=== PATIENT | male | born 1985 | race Caucasian/White ===

== ENCOUNTER 2017-04-05 14:42 | Emergency (ER) | payer SELFPAY ==
[~2017-04-05] VITALS: Ht 160 cm; Wt 67.3 kg
[2017-04-05 14:45] VITALS: BP 128/66; TEMP 99
[2017-04-05] MEDS ORDERED: NORCO 325 MG-51 TAB PO (16:29)
[2017-04-05 16:43] VITALS: PULSE 78
== END 2017-04-05 16:44 | disposition home or self-care (01) ==
LOC: COL.ER 14:42
DX: S62.615A Displaced fracture of proximal phalanx of left ring finger, initial encounter for closed fracture (principal); W20.8XXA Other cause of strike by thrown, projected or falling object, initial encounter; Y92.009 Unspecified place in unspecified non-institutional (private) residence as the place of occurrence of the external cause

== ENCOUNTER 2021-04-15 16:45 | Inpatient (IN) | payer SELFPAY ==
[~2021-04-15] VITALS: Ht 170.2 cm; Wt 64.9 kg
[~2021-04-15 16:45] MED LIST: NORCO 325 MG-51 TAB PO
[2021-04-15 19:16] LABS: HEMATOCRIT 43.3 % (42.0-52.0); HEMOGLOBIN 15.3 g/dl (13.5-18.0); MEAN CELL VOLUME 89 fl (80.0-100.0); MEAN CORPUSCULAR HEMOGLOBIN 32 pg (27.0-31.0); MEAN CORPUSCULAR HGB CONC 35 g/dl (33.0-37.0); MEAN PLATELET VOLUME 10.5 fl (7.4-10.4); PLATELET COUNT 150 K/mm3 (130-400); RED BLOOD COUNT 4.86 M/mm3 (4.20-5.60); REDCELL DISTRIBUTION WIDTH-CV 11.4 % (11.5-14.5)
[2021-04-15 19:28] LABS: ALBUMIN 3.8 gm/dL (3.5-5.0); BILIRUBIN,TOTAL 0.2 mg/dL (0.0-1.0); CALCIUM 8.3 mg/dL (8.4-10.2); CREATININE, serum 0.96 (0.66-1.25); POTASSIUM 3.3 mmol/L (3.4-5.0)
[2021-04-15 19:42] LABS: C-REACTIVE PROTEIN 15.2 mg/dL (0.0-0.9)
[2021-04-15 19:58] LABS: BAND 8 % (0-10); LYMPHOCYTE 18 % (20.0-51.0); NEUTROPHILS 68 % (42.0-75.2); PLATELET ESTIMATE NORMAL (NORMAL)
[2021-04-15 21:47] LABS: INR 1.2 (0.8-3.0); PROTHROMBIN TIME 13.3 SECONDS (9.7-12.8)
[2021-04-15 21:49] LABS: PARTIAL THROMBOPLASTIN TIME 31.8 SECONDS (26.0-37.0)
[2021-04-16 00:37] LABS: ARTERIAL BLD GAS O2 SATURATION 92.9 % (92-100); ARTERIAL BLD GAS TCO2 CT 21.1; ARTERIAL BLOOD GAS BASE EXCESS -3.8 (-2-2); ARTERIAL BLOOD GAS HCO3 20.1 meq/L (22-26); ARTERIAL BLOOD GAS PCO2 33.2 mmHg (35-45); ARTERIAL BLOOD GAS PO2 66.2 mmHg (80-100)
[2021-04-16 02:45] VITALS: BP 90/56; PULSE 69; TEMP 98.6
--- NOTE | 2021-04-16 03:16 | NUR ---
PT ADMISSION COMPLETED. PT DENIES PAIN AT THIS TIME. PT ORIENTED TO ROOM, CALL LIGHT. PT BELONGINGS IN ROOM. NO OTHER NEEDS EXPRESSED.
[2021-04-16 05:05] VITALS: BP 96/60; PULSE 66; TEMP 98.3
--- NOTE | 2021-04-16 05:13 | NUR ---
PT TACHYPNIC DURING 0400 VS. PT SLEEPING, NOT COMPLAINING OF SOA. SPO2 97%. PT NOT HAVING PAIN AT THIS TIME.
--- NOTE | 2021-04-16 05:39 | NUR ---
PT CURRENTLY SLEEPING. UOP 700ML. IV CONTINUING. NO FURTHER NEEDS AT THIS TIME.
[2021-04-16 07:18] LABS: ARTERIAL BLD GAS O2 SATURATION 93.6 % (92-100); ARTERIAL BLOOD GAS BASE EXCESS -3.2 (-2-2); ARTERIAL BLOOD GAS HCO3 20.1 meq/L (22-26); ARTERIAL BLOOD GAS PCO2 31.5 mmHg (35-45); ARTERIAL BLOOD GAS pH 7.42 (7.35-7.45)
[2021-04-16 09:00] VITALS: BP 115/60; PULSE 77; TEMP 100.8
--- NOTE | 2021-04-16 10:20 | NUR ---
The patient is COVID positive. ENRIQUE contacted the patient's room phone to discuss discharge plan. The patient lives in [place] with a friend. He states that his , Estrellita, and four children live in [place]. He reports that they will be coming up to [place] next month. He reports independence with ADLs and does not have any DME. The patient does not have a PCP and has not been utilizing any pharmacy. He is listed as self pay. SW consulted financial counselor, Maria. ENRIQUE discussed the [facility] and [facility] in [place] for primary care. The patient was open to getting set up at the [facility] for follow up care. The patient does not have a DPOA-HC. He plans on returning back to his home in [place] upon discharge. ENRIQUE contacted the number on file for Estrellita. It was the wrong number. ENRIQUE notified the patient. The patient gave SW his niece's, Abi's, phone number [phone]). The patient states that Abi is staying with Estrellita right now. ENRIQUE contacted Raymundogillian and provided her with an update. Abi provided SW with Estrellita's phone number: [phone]. The patient is currently requiring 50 liters of oxygen. SW to continue to follow. *Discharge plan: home*
--- NOTE | 2021-04-16 11:01 | NUR ---
Pt awake upon entry, no C/O pain at this time. Shift assessment complete, left Pt call light in reach, bed in lowest position.
[2021-04-16 12:29] VITALS: BP 118/57; PULSE 85; TEMP 99
[2021-04-16 17:03] VITALS: BP 112/58; PULSE 69; TEMP 99.4
[2021-04-16 19:03] LABS: HEMATOCRIT 42.9 % (42.0-52.0); HEMOGLOBIN 15.5 g/dl (13.5-18.0); MEAN CELL VOLUME 87 fl (80.0-100.0); MEAN CORPUSCULAR HEMOGLOBIN 31 pg (27.0-31.0); MEAN CORPUSCULAR HGB CONC 36 g/dl (33.0-37.0); MEAN PLATELET VOLUME 10.2 fl (7.4-10.4); PLATELET COUNT 194 K/mm3 (130-400); RED BLOOD COUNT 4.94 M/mm3 (4.20-5.60); REDCELL DISTRIBUTION WIDTH-CV 11.6 % (11.5-14.5)
[2021-04-16 19:14] LABS: CREATININE, serum 0.61 (0.66-1.25)
[2021-04-16 19:58] LABS: BAND 5 % (0-10); LYMPHOCYTE 6 % (20.0-51.0); NEUTROPHILS 87 % (42.0-75.2); PLATELET ESTIMATE NORMAL (NORMAL)
--- NOTE | 2021-04-16 20:53 | NUR ---
Patient is lying in bed, alert and oriented x 4, VSS, no nausea or vomiting. Reports he feels better oxygenated. Airvo in place 50L per min 56% 0xygen. Continue monitoring.
--- NOTE | 2021-04-16 22:02 | NUR ---
Tylenol provided PRN. Patient complains of pain in the neck.
--- NOTE | 2021-04-17 00:03 | NUR ---
Patient complains about pain in the left lower side of his neck. There is some mild inflamation. Patient did not required pain meds.
[2021-04-17 01:20] VITALS: BP 104/59; PULSE 63; TEMP 98.1
[2021-04-17 04:10] VITALS: BP 103/54; PULSE 58; TEMP 98.5
--- NOTE | 2021-04-17 05:39 | NUR ---
Patient has been stable at night. Some complains about pain in his neck. Levels fo oxygen over 93% with airvo at 50L. Continue monitoring and give report to day shift nurse.
[2021-04-17 07:02] LABS: HEMATOCRIT 41.4 % (42.0-52.0); HEMOGLOBIN 14.6 g/dl (13.5-18.0); MEAN CELL VOLUME 89 fl (80.0-100.0); MEAN CORPUSCULAR HEMOGLOBIN 31 pg (27.0-31.0); MEAN CORPUSCULAR HGB CONC 35 g/dl (33.0-37.0); MEAN PLATELET VOLUME 10.3 fl (7.4-10.4); PLATELET COUNT 222 K/mm3 (130-400); RED BLOOD COUNT 4.66 M/mm3 (4.20-5.60); REDCELL DISTRIBUTION WIDTH-CV 11.7 % (11.5-14.5)
[2021-04-17 07:14] LABS: CALCIUM 8.3 mg/dL (8.4-10.2); CREATININE, serum 0.67 (0.66-1.25)
[2021-04-17 08:14] VITALS: BP 108/69; BP 108/692; PULSE 62; TEMP 98.7
[2021-04-17 08:39] LABS: BAND 11 % (0-10); LYMPHOCYTE 7 % (20.0-51.0); NEUTROPHILS 77 % (42.0-75.2)
[2021-04-17 08:40] LABS: PLATELET ESTIMATE NORMAL (NORMAL)
--- NOTE | 2021-04-17 09:57 | NUR ---
Pt awake upon entry, Sitting up in bed eating breakfast. No C/O pain at this time. Shift assessments complete, Left Pt call light in reach, bed in lowest position.
[2021-04-17 12:40] VITALS: BP 109/61; PULSE 61; TEMP 98.3
[2021-04-17 17:36] VITALS: BP 106/61; PULSE 75; TEMP 99.2
[2021-04-17 21:06] VITALS: BP 106/58; PULSE 60; TEMP 98.5
[2021-04-18 01:00] VITALS: BP 106/57; PULSE 56; TEMP 98.1
[2021-04-18 04:26] VITALS: BP 102/58; PULSE 54; TEMP 98.5
--- NOTE | 2021-04-18 06:39 | NUR ---
Patient has been stable, no needs to increase levels of O2. Still he feels SOB with exertion. Shift report will be given.
[2021-04-18 07:35] LABS: HEMATOCRIT 44.6 % (42.0-52.0); HEMOGLOBIN 15.8 g/dl (13.5-18.0); MEAN CELL VOLUME 88 fl (80.0-100.0); MEAN CORPUSCULAR HEMOGLOBIN 31 pg (27.0-31.0); MEAN CORPUSCULAR HGB CONC 35 g/dl (33.0-37.0); MEAN PLATELET VOLUME 10.4 fl (7.4-10.4); PLATELET COUNT 278 K/mm3 (130-400); RED BLOOD COUNT 5.08 M/mm3 (4.20-5.60); REDCELL DISTRIBUTION WIDTH-CV 11.6 % (11.5-14.5)
[2021-04-18 07:48] LABS: ALBUMIN 3.4 gm/dL (3.5-5.0); BILIRUBIN,TOTAL 0.4 mg/dL (0.0-1.0); C-REACTIVE PROTEIN 4.2 mg/dL (0.0-0.9); CALCIUM 8.4 mg/dL (8.4-10.2); CREATININE, serum 0.68 (0.66-1.25); POTASSIUM 3.7 mmol/L (3.4-5.0); TOTAL PROTEIN 6.3 gm/dL (6.4-8.2)
[2021-04-18 08:20] LABS: BAND 10 % (0-10); LYMPHOCYTE 10 % (20.0-51.0); NEUTROPHILS 78 % (42.0-75.2); PLATELET ESTIMATE NORMAL (NORMAL)
[2021-04-18 09:33] VITALS: BP 108/58; PULSE 61; TEMP 97.4
--- NOTE | 2021-04-18 10:24 | NUR ---
Pt awake upon entry. Has C/O pain on left breast area. Shift assessment complete, left Pt call light in reach, Bed in lowest position.
[2021-04-18 13:22] VITALS: BP 124/87; PULSE 68; TEMP 98.3
[2021-04-18 16:43] VITALS: BP 126/70; PULSE 57; TEMP 98
[2021-04-18 20:00] VITALS: BP 115/68; PULSE 52; TEMP 98.5
--- NOTE | 2021-04-18 21:30 | NUR ---
Patient is lying in bed watching televition. He is a little more positive since his O2 in airvo was reduced to 45L from 50. He states he still feel afraid of walking to the restroom because of the lack of O2. VSS. Assessment completed. Meds provided. No further needs at this time[facility]
[2021-04-19 00:11] VITALS: BP 113/61; PULSE 56; TEMP 98.8
[2021-04-19 04:13] VITALS: BP 120/65; PULSE 51; TEMP 98.8
--- NOTE | 2021-04-19 06:17 | NUR ---
Patient has had a calm night. He is at 40 L Airvo. No further needs at this time.
[2021-04-19 08:09] LABS: HEMATOCRIT 44.8 % (42.0-52.0); MEAN CELL VOLUME 88 fl (80.0-100.0); MEAN CORPUSCULAR HEMOGLOBIN 31 pg (27.0-31.0); MEAN CORPUSCULAR HGB CONC 36 g/dl (33.0-37.0); MEAN PLATELET VOLUME 10.3 fl (7.4-10.4); PLATELET COUNT 228 K/mm3 (130-400); RED BLOOD COUNT 5.09 M/mm3 (4.20-5.60); REDCELL DISTRIBUTION WIDTH-CV 11.6 % (11.5-14.5)
[2021-04-19 08:15] VITALS: BP 107/61; PULSE 70; TEMP 97.8
--- NOTE | 2021-04-19 09:50 | NUR ---
Pt awake in bed upon entry, no C/O pain at this time. Shift assessment complete, left Pt call light in reach, bed in lowest position.
[2021-04-19 10:42] LABS: CALCIUM 8.6 mg/dL (8.4-10.2); CREATININE, serum 0.72 (0.66-1.25); POTASSIUM 3.7 mmol/L (3.4-5.0)
[2021-04-19 11:03] LABS: BAND 4 % (0-10); LYMPHOCYTE 16 % (20.0-51.0); NEUTROPHILS 73 % (42.0-75.2); PLATELET ESTIMATE NORMAL (NORMAL)
[2021-04-19 12:55] VITALS: BP 118/73; PULSE 52; TEMP 97.9
[2021-04-19 15:56] VITALS: BP 114/72; PULSE 61; TEMP 985.2
[2021-04-19 20:35] VITALS: BP 112/71; PULSE 52; TEMP 98.1
--- NOTE | 2021-04-19 21:30 | NUR ---
Patient is resting in bed watching TV. Alert and oriented x 4, VSS, Tele in place, he is at 50 L 02 AIRVO. Reports feeling the same, no worst not better. Denies nausea, vomiting or pain. Continues with sporadic not productive cough. Meds provided, assessment completed. No further needs at this time. Call light within reach.
[2021-04-20] VITALS (8 sets, daily range): BP systolic 107–127; BP diastolic 55–80; PULSE 51–75; TEMP 97.8–98.8
--- NOTE | 2021-04-20 05:46 | NUR ---
Patient complains of pain in his anus. He states that has hemorrhoids.
--- NOTE | 2021-04-20 06:14 | NUR ---
Patient has been with 50 L AIRVO. No changes. He has some episodes of cough that make him try to vomit. Cough medication provided. It was reported the pain r/t hemorrhoids to the PA. Waiting for med order. No further needs at this time. Shift report will be given.
[2021-04-20 06:41] LABS: HEMATOCRIT 45.4 % (42.0-52.0); HEMOGLOBIN 15.8 g/dl (13.5-18.0); MEAN CELL VOLUME 91 fl (80.0-100.0); MEAN CORPUSCULAR HEMOGLOBIN 32 pg (27.0-31.0); MEAN CORPUSCULAR HGB CONC 35 g/dl (33.0-37.0); MEAN PLATELET VOLUME 9.8 fl (7.4-10.4); PLATELET COUNT 196 K/mm3 (130-400); RED BLOOD COUNT 5.01 M/mm3 (4.20-5.60); REDCELL DISTRIBUTION WIDTH-CV 11.7 % (11.5-14.5)
[2021-04-20 06:52] LABS: CALCIUM 8.5 mg/dL (8.4-10.2); CREATININE, serum 0.75 (0.66-1.25); POTASSIUM 3.7 mmol/L (3.4-5.0)
[2021-04-20 09:08] LABS: BAND 5 % (0-10); EOSINOPHIL 1 % (0-4); LYMPHOCYTE 12 % (20.0-51.0); METAMYELOCYTE 1 % (0-0); NEUTROPHILS 75 % (42.0-75.2); PLATELET ESTIMATE NORMAL (NORMAL)
--- NOTE | 2021-04-20 09:55 | NUR ---
Pt awake in bed upon entry, no C/O pain at this time. Shift assessment complete, left Pt call light in reach, bed in lowest position.
[2021-04-21 07:51] VITALS: BP 109/57; PULSE 66; TEMP 97.9
--- NOTE | 2021-04-21 08:00 | NUR ---
Assessment complete. Pt resting in bed, A&O x 4. Pt reports hemorroid pain 4 out of 10, denies further c/o. O2 provided via Airvo at 50L/min and 50%. When asked how pt is feeling, he replies "essie." Physical assessment otherwise unremarkable. No further needs reported. Call light in reach.
[2021-04-21 08:06] LABS: HEMOGLOBIN 16.6 g/dl (13.5-18.0); MEAN CELL VOLUME 87 fl (80.0-100.0); MEAN CORPUSCULAR HEMOGLOBIN 31 pg (27.0-31.0); MEAN CORPUSCULAR HGB CONC 36 g/dl (33.0-37.0); PLATELET COUNT 229 K/mm3 (130-400); RED BLOOD COUNT 5.29 M/mm3 (4.20-5.60); REDCELL DISTRIBUTION WIDTH-CV 11.7 % (11.5-14.5)
[2021-04-21 08:14] LABS: ALBUMIN 3.3 gm/dL (3.5-5.0); BILIRUBIN,TOTAL 0.5 mg/dL (0.0-1.0); C-REACTIVE PROTEIN 1.1 mg/dL (0.0-0.9); CALCIUM 8.7 mg/dL (8.4-10.2); CREATININE, serum 0.73 (0.66-1.25); POTASSIUM 4.2 mmol/L (3.4-5.0); TOTAL PROTEIN 6.3 gm/dL (6.4-8.2)
[2021-04-21 09:04] LABS: BAND 3 % (0-10); BASOPHIL 1 % (0-2); EOSINOPHIL 3 % (0-4); LYMPHOCYTE 11 % (20.0-51.0); METAMYELOCYTE 1 % (0-0); NEUTROPHILS 77 % (42.0-75.2)
[2021-04-21 09:05] LABS: PLATELET ESTIMATE NORMAL (NORMAL)
[2021-04-21 11:38] VITALS: BP 104/63; PULSE 61; TEMP 97.9
[2021-04-21 16:02] VITALS: BP 107/64; PULSE 71; TEMP 98.4
--- NOTE | 2021-04-21 17:00 | NUR ---
Pt has Preparation H at bedside for application, but does not feel it is relieving pain yet. Sched medications administered as well. Pt reports feeling good besides the hemorrhoid pain. No further needs reported. Call light in reach.
--- NOTE | 2021-04-21 18:48 | NUR ---
Report with JOSE Jimenez.
[2021-04-21 20:27] VITALS: BP 102/57; PULSE 62; TEMP 98.4
[2021-04-22 00:46] VITALS: BP 94/74; PULSE 74; TEMP 98.4
[2021-04-22 03:17] VITALS: BP 101/68; PULSE 58; TEMP 98.8
--- NOTE | 2021-04-22 05:12 | NUR ---
Patient resting comfortably, Aiv Vo in use at 40L / 43% FIO2, tolerating well, VS stable, telemetry in use SR 60, no complaints of at this time. Will continue to monitor.
[2021-04-22 08:24] VITALS: BP 101/59; PULSE 62; TEMP 97.9
[2021-04-22 08:50] LABS: HEMATOCRIT 50.3 % (42.0-52.0); HEMOGLOBIN 17.8 g/dl (13.5-18.0); MEAN CELL VOLUME 89 fl (80.0-100.0); MEAN CORPUSCULAR HEMOGLOBIN 32 pg (27.0-31.0); MEAN CORPUSCULAR HGB CONC 35 g/dl (33.0-37.0); MEAN PLATELET VOLUME 10.1 fl (7.4-10.4); PLATELET COUNT 242 K/mm3 (130-400); RED BLOOD COUNT 5.63 M/mm3 (4.20-5.60); REDCELL DISTRIBUTION WIDTH-CV 11.9 % (11.5-14.5)
[2021-04-22 08:57] LABS: CREATININE, serum 0.8 (0.66-1.25); POTASSIUM 4.2 mmol/L (3.4-5.0)
[2021-04-22 13:00] VITALS: BP 101/62; PULSE 56; TEMP 98.3
--- NOTE | 2021-04-22 15:42 | NUR ---
ENRIQUE contacted the patient to follow up. The patient states that he is doing really good. He states that he still plans on returning back home with his friend upon discharge and plans to go back to work after a couple of days. He states that his and family are in [place] now. He states that they came yesterday and stood out in the parking lot and he was able to see and wave to them through his window. He had no other concerns for SW at this time. The patient is currently requiring 35 liters of oygen. ENRIQUE to continue to monitor.
[2021-04-22 16:02] VITALS: BP 91/56; PULSE 66; TEMP 98.7
[2021-04-22 20:47] VITALS: BP 98/60; PULSE 72; TEMP 98
[2021-04-23 00:06] VITALS: BP 99/57; PULSE 56
[2021-04-23 04:21] VITALS: BP 105/70; PULSE 54; TEMP 98.4
[2021-04-23 08:14] LABS: HEMATOCRIT 48.2 % (42.0-52.0); HEMOGLOBIN 16.8 g/dl (13.5-18.0); MEAN CELL VOLUME 90 fl (80.0-100.0); MEAN CORPUSCULAR HEMOGLOBIN 31 pg (27.0-31.0); MEAN CORPUSCULAR HGB CONC 35 g/dl (33.0-37.0); MEAN PLATELET VOLUME 9.8 fl (7.4-10.4); PLATELET COUNT 231 K/mm3 (130-400); RED BLOOD COUNT 5.35 M/mm3 (4.20-5.60); REDCELL DISTRIBUTION WIDTH-CV 11.9 % (11.5-14.5)
[2021-04-23 08:59] LABS: BAND 3 % (0-10); EOSINOPHIL 3 % (0-4); LYMPHOCYTE 16 % (20.0-51.0); METAMYELOCYTE 4 % (0-0); NEUTROPHILS 69 % (42.0-75.2)
[2021-04-23 09:00] LABS: PLATELET ESTIMATE NORMAL (NORMAL)
[2021-04-23 09:24] VITALS: BP 106/64; PULSE 57; TEMP 98.5
[2021-04-23 11:57] VITALS: BP 99/56; PULSE 62; TEMP 98.6
[2021-04-23 16:00] VITALS: BP 106/66; PULSE 62; TEMP 98.1
[2021-04-23 20:29] VITALS: BP 106/90; PULSE 66; TEMP 98.2
[2021-04-24] VITALS (7 sets, daily range): BP systolic 99–119; BP diastolic 60–73; PULSE 54–89; TEMP 97.7–98.5
--- NOTE | 2021-04-24 00:57 | NUR ---
Patient alert and oriented. Patient denies any pain or discomfort. Denies SOB or dyspnea. No N/V or diarrhea noted. Patient currently on 3L oxygen via NC. VS stable. All scheduled meds given per OCT. Call light in reach. Will continue to monitor.
--- NOTE | 2021-04-24 06:27 | NUR ---
Patient currently on 1L via high flow NC. SPO2 95-96% on 1L oxygen at this time. No acute respiratory distress noted throughout the night. Call light in reach.
--- NOTE | 2021-04-24 08:00 | NUR ---
Patient sitting up in bed watching TV. RT took NC off to assess oxygen needs on room air. A&Ox4. VSS 92% RM air. IV CDI. Denies pain and discomfort. Droplet/contact precautions in place. No further needs expressed. Call light within reach
[2021-04-24 08:40] LABS: MEAN CELL VOLUME 89 fl (80.0-100.0); MEAN CORPUSCULAR HGB CONC 35 g/dl (33.0-37.0); MEAN PLATELET VOLUME 9.4 fl (7.4-10.4); PLATELET COUNT 244 K/mm3 (130-400); RED BLOOD COUNT 5.87 M/mm3 (4.20-5.60); REDCELL DISTRIBUTION WIDTH-CV 11.9 % (11.5-14.5)
[2021-04-24 08:44] LABS: HEMATOCRIT 52.1 % (42.0-52.0); HEMOGLOBIN 18.4 g/dl (13.5-18.0); MEAN CORPUSCULAR HEMOGLOBIN 31 pg (27.0-31.0)
[2021-04-24 08:46] LABS: BILIRUBIN,TOTAL 0.7 mg/dL (0.0-1.0); CALCIUM 9.4 mg/dL (8.4-10.2); CREATININE, serum 0.79 (0.66-1.25); TOTAL PROTEIN 7.2 gm/dL (6.4-8.2)
[2021-04-24 10:58] LABS: EOSINOPHIL 2 % (0-4); LYMPHOCYTE 21 % (20.0-51.0); METAMYELOCYTE 1 % (0-0); NEUTROPHILS 69 % (42.0-75.2); PLATELET ESTIMATE NORMAL (NORMAL)
--- NOTE | 2021-04-24 18:10 | NUR ---
Patient took a shower and states that he feels better. A&Ox4. VSS 1L NC O2. Denies pain and discomfort. IV CDI. Droplet/contact precautions in place. No further needs expressed. Call light within reach
--- NOTE | 2021-04-25 00:31 | NUR ---
Patient sitting up in the chair and talking on the phone upon enter the room. Patient states feeling pretty good today. Denies pain, SOB, N\V, or diarrhea. Patient currently on 1L oxygen via NC. Breathing even and unlabored. No acute respiratory distress noted. Call light in reach. Will continue to monitor.
[2021-04-25 03:37] VITALS: BP 109/65; PULSE 70; TEMP 98.8
--- NOTE | 2021-04-25 06:25 | NUR ---
Patient remains on oxygen 1L via NC over the night. SPO2 stays above 95% on 1L while at rest. Call light in reach. Will continue to monitor.
[2021-04-25 07:23] LABS: HEMOGLOBIN 17.3 g/dl (13.5-18.0); MEAN CELL VOLUME 92 fl (80.0-100.0); MEAN CORPUSCULAR HEMOGLOBIN 32 pg (27.0-31.0); MEAN CORPUSCULAR HGB CONC 35 g/dl (33.0-37.0); MEAN PLATELET VOLUME 9.5 fl (7.4-10.4); PLATELET COUNT 258 K/mm3 (130-400); RED BLOOD COUNT 5.43 M/mm3 (4.20-5.60); REDCELL DISTRIBUTION WIDTH-CV 12.2 % (11.5-14.5)
[2021-04-25 08:00] VITALS: BP 103/65; PULSE 63
--- NOTE | 2021-04-25 08:00 | NUR ---
Patient at the sink brushing teeth, A&Ox4. VSS 1L NC O2, no reported SOB. Independent in room. Denies pain and discomfort. IV CDI. No further needs expressed. Droplet/contact precautions in place. Call light within reach
[2021-04-25 09:37] LABS: BAND 1 % (0-10); EOSINOPHIL 2 % (0-4); LYMPHOCYTE 32 % (20.0-51.0); NEUTROPHILS 61 % (42.0-75.2)
[2021-04-25 09:38] LABS: PLATELET ESTIMATE NORMAL (NORMAL)
[2021-04-25] MEDS ORDERED: PROAIR HFA0.09 MG/AC IH (11:35)
--- NOTE | 2021-04-25 13:02 | NUR ---
Discharge paperwork reviewed with the patient. Patient verbalized an understanding to follow doctors orders and to make a PCP appointment monday. IV removed, tip intact, gauze and bandaid applied. Patient waiting on family to pickle solution maker. Call light within reach
--- NOTE | 2021-04-25 15:40 | NUR ---
Patient taken by wheelchair to the ER entrance. Discharge paperwork and personal belongings with the patient
[2021-04-26 08:26] LABS: PATHOLOGY DIFF REVIEW OK
[2021-04-27 14:05] LABS: ARTERIAL BLD GAS O2 SATURATION 93.8 % (92-100); ARTERIAL BLOOD GAS BASE EXCESS -1.7 (-2-2); ARTERIAL BLOOD GAS HCO3 21.9 meq/L (22-26); ARTERIAL BLOOD GAS PCO2 34.4 mmHg (35-45); ARTERIAL BLOOD GAS PO2 73.4 mmHg (80-100); ARTERIAL BLOOD GAS pH 7.42 (7.35-7.45)
== END 2021-04-25 15:40 | disposition home or self-care (01) | DRG 177 ==
LOC: COL.ER 16:45 → MEDICAL 21:36
PROVIDERS: Internal Medicine; Internal Medicine Sleep Medicine; Nurse Practitioner; Nurse Practitioner Family; ADMIT Student in an Organized Health Care Education/Training Program
PROC: XW033E5 Introduction of Remdesivir Anti-infective into Peripheral Vein, Percutaneous Approach, New Technology Group 5 (ICD-10-PCS; principal; 2021-04-16)
DX: U07.1 COVID-19 (principal); J12.82 Pneumonia due to coronavirus disease 2019; J96.01 Acute respiratory failure with hypoxia; R65.10 Systemic inflammatory response syndrome (SIRS) of non-infectious origin without acute organ dysfunction; E87.1 Hypo-osmolality and hyponatremia; E87.6 Hypokalemia; R74.01 Elevation of levels of liver transaminase levels; J98.2 Interstitial emphysema; K64.9 Unspecified hemorrhoids
CPT/HCPCS: 99222-AI; 99223-AI; 99231-AI; 99232-AI; 99233-AI; 99239; J0696; J1100; J1650; J7030; J7050; J8540; Q9967

== ENCOUNTER 2023-09-07 18:01 | Emergency (ER) | payer SELFPAY ==
[~2023-09-07] VITALS: Ht 157.5 cm; Wt 66.1 kg
[~2023-09-07 18:01] MED LIST changes: +PROAIR HFA0.09 MG/AC IH
[2023-09-07 18:15] VITALS: BP 133/78; TEMP 98.1
[2023-09-07] MEDS ORDERED: Ibuprofen 400 MG TAB PO ONE (18:30)
[2023-09-07 19:33] VITALS: PULSE 78
== END 2023-09-07 19:33 | disposition home or self-care (01) ==
LOC: COL.ER 18:01
DX: S91.311A Laceration without foreign body, right foot, initial encounter (principal); S00.81XA Abrasion of other part of head, initial encounter; Z23 Encounter for immunization; W20.8XXA Other cause of strike by thrown, projected or falling object, initial encounter